=== PATIENT | female | born 1975 | race Caucasian/White ===

== ENCOUNTER 2018-11-01 11:19 | Emergency (ER) | payer MEDICAID ==
[2018-11-01] MEDS ORDERED: 0.9 % SODIUM CHLORIDE 1,000 ML BAG IV ONE (11:39)
[2018-11-01] MEDS ORDERED: ACETAMINOPHEN 1,000 MG/100 ML BTL IVPB ONE (11:40)
--- NOTE | 2018-11-01 11:45 | Emergency Department Record ---
History of Present Illness - General Chief Complaint: Back Pain/Injury Stated Complaint: LOWER BACK PAIN Time Seen by Provider: 11/01/18 11:23 Source: Patient Mode of Arrival: Ambulatory Limitations: No limitations - History of Present Illness Initial Comments: The patient is here due to mid to lower back pain for about 3 days. The pain initially started over the L side and then travelled to the R side. The pain is much worse with any bending or twisting. There is no pain radiating down the legs and no leg weakness or numbness along with no bowel or bladder changes. The patient also denies any AP, hematuria, fever, vomiting, dysuria or hematuria. MD Complaint: Back pain Onset/Timin -: Days(s) Similar Symptoms Previously: Yes Severity scale (1-10): 8 Quality: Aching Consistency: Constant Context: Other - Related Data Home Medications Medication Instructions Recorded Confirmed Last Taken Amlodipine Besylate [Norvasc] 10 mg PO DAILY 11/01/18 11/01/18 1 Day Ago ~10/31/18 Clonidine HCl 0.2 mg PO BID 11/01/18 11/01/18 1 Day Ago ~10/31/18 Ibuprofen [Motrin 400Mg] 400 mg PO Q12H PRN 11/01/18 11/01/18 1 Day Ago ~10/31/18 Lisinopril 40 mg PO DAILY 11/01/18 11/01/18 1 Day Ago ~10/31/18 Propranolol HCl [Inderal Xl] 80 mg PO DAILY 11/01/18 11/01/18 1 Day Ago ~10/31/18 Previous Rx's Medication Instructions Recorded Cyclobenzaprine HCl [Flexeril] 10 mg PO TID PRN #20 tablet 11/01/18 Naproxen [Naprosyn] 500 mg PO BID #14 tablet. 11/01/18 Allergies Allergy/AdvReac Type Severity Reaction Status Date / Time Sulfa (Sulfonamide Allergy HIVES Verified 11/01/18 11:37 Antibiotics) meloxicam [From Mobic] AdvReac NAUSEA Verified 11/01/18 11:37 Travel Screening - Travel/Exposure Within Last 30 Days Have you traveled within the last 30 days?: No - Travel/Exposure Within Last Year Have you traveled outside the [place] in the last year?: No - Additonal Travel Details Have you been exposed to anyone with a communicable illness?: No - Travel Symptoms Symptom Screening: None Review of Systems Constitutional: Denies: Chills, Fever Eyes: Denies: Eye discharge ENT: Denies: Congestion Respiratory: Denies: Cough, Dyspnea Cardiovascular: Denies: Arrhythmia Endocrine: Denies: Fatigue Gastrointestinal: Denies: Abdominal pain Genitourinary: Denies: Dysuria Musculoskeletal: Reports: Back pain. Denies: Arthralgia Skin: Denies: Bruising Past Medical History - SOCIAL HISTORY Smoking Status: Current every day smoker Alcohol Use: None Drug Use: Occasional, Heavy Drug Use Detail:: Marijuana - RESPIRATORY Hx Respiratory Disorders: No - CARDIOVASCULAR Hx Cardio Disorders: Yes Hx Hypertension: Yes - NEURO Hx Neuro Disorders: No - GI Hx GI Disorders: No - Hx Kidney Stones: Yes Comment:: ovarian cyst - ENDOCRINE Hx Endocrine Disorders: No Hx Diabetes: No Hx Thyroid Disease: No - MUSCULOSKELETAL Hx Musculoskeletal Disorders: Yes Hx Arthritis: Yes (bursitis) - PSYCH Hx Psych Problems: No - HEMATOLOGY/ONCOLOGY Hx Hematology/Oncology Disorders: No Hx Anemia: No Hx Blood Disorders: No Hx Bruising: No Hx Cancer: No Hx Chemotherapy: No Family Medical History Any Significant Family History?: Yes Hx Heart Disease: Mother, Brother/Sister, Grandparents Physical Exam - General General Appearance: Alert, Oriented x3, Cooperative, No acute distress - Head Head exam: Atraumatic, Normocephalic, Normal inspection - Eye Eye exam: Normal appearance, PERRL, EOMI - ENT Throat exam: Normal inspection. negative: Tonsillar erythema, Tonsillar exudate - Neck Neck exam: Normal inspection, Full ROM. negative: Tenderness - Respiratory Respiratory exam: Normal lung sounds bilaterally. negative: Respiratory distress - Cardiovascular Cardiovascular Exam: Regular rate, Normal rhythm, Normal heart sounds - GI/Abdominal GI/Abdominal exam: Soft, Normal bowel sounds. negative: Tenderness - Extremities Extremities exam: Normal inspection, Full ROM, Normal capillary refill. negative: Tenderness - Back Back exam: Reports: Normal inspection, Paraspinal tenderness (The pain is exactly reproduced with palpation of the bilateral paraspinal upper lumbar area. ). Denies: Vertebral tenderness - Neurological Neurological exam: Alert, Normal gait, Oriented X3, Reflexes normal. negative: Abnormal gait, Motor sensory deficit (The motor and sensory exam is 5/5 and equal bilaterally to the lower extremities.) Course Vital Signs 11/01/18 11:27 Temperature 98.2 F Pulse Rate 101 H Respiratory 18 Rate Blood Pressure 199/113 Pulse Ox 100 - Reevaluation(s) Reevaluation #1: The patient is doing better at this time but is still having some pain. Presently she is sitting on the side of the bed texting on her phone appearing very comfortable. On exam the pain is still 100% reproducible to palpation. She clearly is neurologically intact and with a normal CT I strongly doubted any acute kidney pathology causing her symptoms. I did discuss the minor blood in the urine and the need to F/U with her PCP along with the need to F/U due to her HTN. 11/01/18 13:36 Medical Decision Making - Data Complexity MDM Data: Labs Ordered and/or Reviewed, X-Ray Ordered and/or Reviewed - Lab Data Result diagrams: 11/01/18 11:40 11/01/18 11:40 - Radiology Data Radiology results: Report reviewed (Abd CT: Neg for acute changes.) Disposition Disposition: Discharge Clinical Impression: Flank pain, acute Disposition: Home, Self-Care Condition: (2) Stable Instructions: Low Back Strain (ED) Additional Instructions: Please take the Naprosyn along with Flexeril for pain. Please see your doctor for recheck in 2-3 days. Return to the ER for any worsening symptoms. Prescriptions: Cyclobenzaprine HCl [Flexeril] 10 mg PO TID PRN #20 tablet PRN Reason: Pain Naproxen [Naprosyn] 500 mg PO BID #14 tablet.dr Forms: Patient Portal Access Time of Disposition: 13:39 Quality - Quality Measures Quality Measures: N/A - Blood Pressure Screening View Details: Yes Does Patient Have Any of the Following: Active Dx of HTN Blood Pressure Classification: Hypertensive Reading Systolic Measurement: 199 Diastolic Measurement: 113 Screening for High Blood Pressure: Patient Exclusion, Hx of HTN [[id number]]
[2018-11-01 11:58] LABS: BASO % 0.3 % (0-6); EOS % 2.5 % (0-6); GRAN % 52.9 % (47-80); HEMATOCRIT 46.8 % (35.0-47.0); HEMOGLOBIN 14.7 gm/dl (11.6-16.0); LYMPH % 38.2 % (16-45); MEAN CELL VOLUME 87.5 fl (81-97); MEAN CORPUSCULAR HEMOGLOBIN 27.5 pg (27-33); MEAN CORPUSCULAR HGB CONC 31.4 g/dl (32-36); MEAN PLATELET VOLUME 11.1 fl (7.4-10.4); MONO % 6.1 % (0-9); PLATELET COUNT 286 K/uL (130-400); RED BLOOD COUNT 5.35 M/uL (3.80-5.40); RED CELL DISTRIBUTION WIDTH 13.3 % (11.5-14.5); WHITE BLOOD COUNT W/O DIFF 8.8 K/uL (4.2-12.2)
[2018-11-01 12:01] LABS: URINE APPEARANCE CLEAR; URINE BILIRUBIN NEGATIVE (NEGATIVE); URINE BLOOD MODERATE (NEGATIVE); URINE COLOR YELLOW; URINE GLUCOSE (UA) NEGATIVE (NEGATIVE); URINE KETONE NEGATIVE (NEGATIVE); URINE LEUKOCYTE ESTERASE NEGATIVE (NEGATIVE); URINE NITRITE NEGATIVE (NEGATIVE); URINE PROTEIN NEGATIVE (NEGATIVE); URINE UROBILINOGEN 0.2 E.U./dL (0.20 - 1.00)
[2018-11-01 12:07] LABS: BLOOD UREA NITROGEN 14 mg/dL (6-20); CREATININE 0.9 mg/dL (0.5-0.9); EST GLOMERULAR FILTRATION RATE > 60 mL/min
[2018-11-01 12:10] LABS: GLUCOSE,RANDOM 111 mg/dL (74-109)
[2018-11-01 12:13] LABS: URINE BACTERIA FEW; URINE MUCUS LIGHT; URINE RBC 16 - 25 (NONE SEEN); URINE SQUAMOUS EPITHELIAL CELL 16 - 20 /hpf; URINE WBC 0 - 2 (0-2/hpf)
[2018-11-01] MEDS ORDERED: KETOROLAC 30 MG/ML VIAL IVP ONE (12:32)
[2018-11-01 12:55] LABS: URINE APPEARANCE CLEAR; URINE BILIRUBIN NEGATIVE (NEGATIVE); URINE BLOOD SMALL (NEGATIVE); URINE COLOR YELLOW; URINE GLUCOSE (UA) NEGATIVE (NEGATIVE); URINE KETONE NEGATIVE (NEGATIVE); URINE LEUKOCYTE ESTERASE NEGATIVE (NEGATIVE); URINE NITRITE NEGATIVE (NEGATIVE); URINE PROTEIN NEGATIVE (NEGATIVE); URINE UROBILINOGEN 0.2 E.U./dL (0.20 - 1.00)
[2018-11-01 13:03] LABS: URINE BACTERIA NONE SEEN; URINE WBC 0 - 2 (0-2/hpf)
== END 2018-11-01 14:14 | disposition home or self-care (01) ==
LOC: ER 11:19
DX: M54.5 Low back pain (principal); I10 Essential (primary) hypertension; Z87.442 Personal history of urinary calculi; F17.210 Nicotine dependence, cigarettes, uncomplicated
CPT/HCPCS: 74176; 80048; 81001; 85025; 96365; 96375; 99284; J1885; J7030